=== PATIENT | male | born 1940 | race Caucasian/White ===

== ENCOUNTER 2017-01-06 12:02 | Emergency (ER) | payer OTHER ==
[~2017-01-06] VITALS: Ht 180.3 cm; Wt 108.8 kg
[~2017-01-06 12:02] MED LIST: FINA5TAB4 PO; FLM4 PO; LOSA1TAB PO; METO50TA16 PO; MULT-506 PO; OMEP20CA9 PO; OXYC-57 PO; SIMV40TA2 PO
[2017-01-06] MEDS ORDERED: SODIUM CHLORIDE 0.9% 500ML 500 ML IV STA (12:08)
[2017-01-06 12:18] VITALS: TEMP 36.8; Ht 180.3 cm; Wt 108.8 kg
[2017-01-06] MEDS ORDERED: TAMS0.4C38 PO (12:25)
[2017-01-06] MEDS ORDERED: TRAM-10 PO (12:25)
--- NOTE | 2017-01-06 12:25 | EMERGENCY ROOM VISIT NOTE ---
History Report prepared by Gustaboib[place]hul: Mellisa Doty Under the Supervision of: Dr. Jamar Torres D.O. First contact with patient: 12:02 Stated Complaint: LT SIDED CP History of Present Illness The patient is a 76 year old male who presents to the Emergency Room with complaints of persistent chest pain since 1050 this morning. He was brought to the ED via EMS and is accompanied by his . EMS reports the patient describes the pain as feeling "deep and sharp" in nature. It was mostly located in the left side of his chest. The patient notes the pain started while he was standing, and was not exerting himself. He also became diaphoretic. He took 2 500 mg Aspirin before EMS arrival, which provided good relief. He states he almost feels "back to normal", but is still dizzy. Breathing worsened the discomfort. He denies any recent nausea, vomiting or back pain. The patient admits to a history of hypertension and hyperlipidemia. He has undergone foot surgery, 2 back surgeries and 2 knee replacements. Source of History: patient, EMS Onset: 1050 this morning Position: chest (left) Quality: sharp, other ("deep") Timing: resolved Modifying Factors (Relieving): other (Aspirin) Associated Symptoms: + diaphoresis, No nausea, No vomiting, No back pain Review of Systems See HPI for pertinent positives & negatives. A total of 10 systems reviewed and were otherwise negative. 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 (2) Hyperlipidemia (3) Hypertension Social History Alcohol Use: none Drug Use: none Marital Status: Housing Status: lives with family Occupation Status: retired Current/Historical Medications Scheduled Cefdinir (Omnicef), 300 MG PO Q12H Finasteride (Proscar), 5 MG PO DAILY Losartan Potassium (Cozaar), 25 MG PO QAM Metoprolol Tartrate (Lopressor) (Lopressor), 50 MG PO BID Omeprazole (Prilosec), 20 MG PO DAILY Simvastatin (Zocor), 40 MG PO QPM Tamsulosin Hcl (Flomax), 0.4 MG PO DAILY Scheduled PRN Tramadol (Ultram), 50 MG PO BID PRN for Pain Allergies Coded Allergies: Adhesives (Verified Allergy, Unknown, BANDAIDS-REDNESS, 12/04/13) NO KNOWN DRUG ALLERGIES (Verified Allergy, Unknown, , 12/04/13) Physical Exam Vital Signs Date Time Temp Pulse Resp B/P (MAP) Pulse Ox O2 Delivery O2 Flow Rate FiO2 01/06/17 15:31 63 18 146/97 97 01/06/17 13:15 78 20 180/96 98 Room Air 01/06/17 12:21 66 01/06/17 12:18 36.8 70 18 194/98 98 Room Air Physical Exam GENERAL: Patient is awake, alert, mildly anxious but overall comfortable. EYES: The conjunctivae are clear. The pupils are round and reactive. EARS, NOSE, MOUTH AND THROAT: The nose is without any evidence of any deformity. Mucous membranes are moist tongue is midline NECK: The neck is nontender and supple. RESPIRATORY: Normal respiratory effort is noted there is no evidence of wheezing rhonchi or rales CARDIOVASCULAR: Regular rate and rhythm noted, systolic murmur suggested. GASTROINTESTINAL: The abdomen is soft. Bowel sounds are present in all quadrants. Abdomen is nontender BACK: No midline tenderness or or step-off noted range of motion in flexion extension as well as rotation no signs of muscle spasm noted MUSCULOSKELETAL/EXTREMITIES: There is no evidence of gross deformity full range of motion is noted in the hips and shoulders SKIN: Pedal edema bilaterally. There is no obvious evidence of any rash. There are no petechiae, pallor or cyanosis noted. NEUROLOGIC: Patient is awake alert and oriented x3 Medical Decision & Procedures ER Provider Diagnostic Interpretation: Radiology results as stated below per my review and radiologist interpretation: ABDOMEN AND PELVIS CT WITHOUT CONTRAST CT DOSE: 966.75 mGy.cm HISTORY: Left flank pain. TECHNIQUE: Multiaxial CT images of the abdomen and pelvis were performed without contrast. A dose lowering technique was utilized adhering to the principles of ALARA. COMPARISON STUDY: Abdomen and pelvis CT 02/17/2008. FINDINGS: Mild interstitial thickening at the lung bases which is likely chronic. This has slightly progressed. Posterior decompression fusion at L3-L5. Mild hepatic steatosis. The unenhanced gallbladder, spleen, and adrenal glands are unremarkable. No retroperitoneal lymphadenopathy. Mildly ectatic abdominal aorta measuring up to 2.7 cm. The bladder is unremarkable. The prostate gland remains enlarged. Small fat-containing bilateral inguinal hernias, unchanged. Stable epiploic appendage anterior to the distal descending colon. Suboptimal evaluation for bowel pathology due to the lack of intravenous and oral contrast. However, there is no definite bowel wall thickening or obstruction. Normal appendix. There is 9 mm exophytic hypodense lesion abutting the tail the pancreas on image 138. This was likely present on the prior study and measured 7 mm. 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 This is of doubtful clinical significance given the relative long-term stability. 1.4 cm hypodense lesion within the upper pole the right kidney and a 2 cm hypodense lesion within the lower pole of the right kidney. These are incompletely characterized on this noncontrast study but favor cysts. These have only slightly increased in size in the interval. No renal or ureteral calculi. No hydronephrosis. IMPRESSION: 1. No renal or ureteral calculi. No hydronephrosis. 2. No definite bowel wall thickening or obstruction. 3. Enlarged prostate. 4. Small fat-containing bilateral inguinal hernias, unchanged. 5. Normal appendix. 6. Additional findings as described above. Electronically signed by: Deepak Hassan M.D. 01/06/2017 12:44 PM CHEST ONE VIEW PORTABLE HISTORY: Left-sided chest pain. COMPARISON: Chest 03/02/2013. FINDINGS: Mild bibasilar interstitial thickening which is likely chronic. The upper lung zones are clear. The heart is borderline enlarged. No pleural effusions. No pneumothorax. There is a right shoulder prosthesis. IMPRESSION: Mild bibasilar interstitial thickening which is likely chronic. Otherwise, no acute process within the chest. Electronically signed by: Deepak Hassan M.D. 01/06/2017 12:54 PM Laboratory Results 01/06/17 11:30 Red Blood Count 5.02, Mean Corpuscular Volume 88.4, Mean Corpuscular Hemoglobin 29.3, Mean Corpuscular Hemoglobin Concent 33.1, Mean Platelet Volume 10.8, Neutrophils (%) (Auto) 65.2, Lymphocytes (%) (Auto) 23.9, Monocytes (%) (Auto) 7.7, Eosinophils (%) (Auto) 2.0, Basophils (%) (Auto) 0.6, Neutrophils # (Auto) 4.47, Lymphocytes # (Auto) 1.64, Monocytes # (Auto) 0.53, Eosinophils # (Auto) 0.14, Basophils # (Auto) 0.04 01/06/17 11:30 Test 01/06/17 11:30 01/06/17 12:50 01/06/17 13:15 White Blood Count 6.86 K/uL (4.8-10.8) Red Blood Count 5.02 M/uL (4.7-6.1) Hemoglobin 14.7 g/dL (14.0-18.0) Hematocrit 44.4 % (42-52) Mean Corpuscular Volume 88.4 fL (80-100) Mean Corpuscular Hemoglobin 29.3 pg (25-34) Mean Corpuscular Hemoglobin Concent 33.1 g/dl (32-36) Platelet Count 202 K/uL (130-400) Mean Platelet Volume 10.8 fL (7.4-10.4) Neutrophils (%) (Auto) 65.2 % Lymphocytes (%) (Auto) 23.9 % Monocytes (%) (Auto) 7.7 % Eosinophils (%) (Auto) 2.0 % Basophils (%) (Auto) 0.6 % Neutrophils # (Auto) 4.47 K/uL (1.4-6.5) Lymphocytes # (Auto) 1.64 K/uL (1.2-3.4) Monocytes # (Auto) 0.53 K/uL (0.11-0.59) Eosinophils # (Auto) 0.14 K/uL (0-0.5) Basophils # (Auto) 0.04 K/uL (0-0.2) RDW Standard Deviation 47.9 fL (36.4-46.3) RDW Coefficient of Variation 14.9 % (11.5-14.5) Immature Granulocyte % (Auto) 0.6 % Immature Granulocyte # (Auto) 0.04 K/uL (0.00-0.02) Anion Gap 12.0 mmol/L (3-11) Est Creatinine Clear Calc Drug Dose 61.1 ml/min Estimated GFR () 63.5 Estimated GFR (Non- 54.8 BUN/Creatinine Ratio 11.2 (10-20) Calcium Level 8.6 mg/dl (8.5-10.1) Magnesium Level 2.0 mg/dl (1.8-2.4) Total Bilirubin 0.6 mg/dl (0.2-1) Direct Bilirubin 0.1 mg/dl (0-0.2) Aspartate Amino Transf (AST/SGOT) 24 U/L (15-37) Alanine Aminotransferase (ALT/SGPT) 24 U/L (12-78) Alkaline Phosphatase 127 U/L (45-117) Troponin I < 0.015 ng/ml (0-0.045) Total Protein 7.1 gm/dl (6.4-8.2) Albumin 3.4 gm/dl (3.4-5.0) Lipase 145 U/L (73-393) Prothrombin Time 10.7 SECONDS (9.0-12.0) Prothromb Time International Ratio 1.0 (0.9-1.1) Activated Partial Thromboplast Time 25.1 SECONDS (21.0-31.0) Partial Thromboplastin Ratio 1.0 Urine Color YELLOW Urine Appearance CLEAR (CLEAR) Urine pH 6.5 (4.5-7.5) Urine Specific [place] 1.023 (1.000-1.030) Urine Protein NEG (NEG) Urine Glucose (UA) NEG (NEG) Urine Ketones NEG (NEG) Urine Occult Blood 1+ (NEG) Urine Nitrite NEG (NEG) Urine Bilirubin NEG (NEG) Urine Urobilinogen NEG (NEG) Urine Leukocyte Esterase MODERATE (NEG) Urine WBC (Auto) >30 /hpf (0-5) Urine RBC (Auto) 10-30 /hpf (0-4) Urine Hyaline Casts (Auto) 1-5 /lpf (0-5) Urine Epithelial Cells (Auto) 10-20 /lpf (0-5) Urine Bacteria (Auto) NEG (NEG) Laboratory results per my review. Medications Administered Medications (Trade) Dose Ordered Sig/[place] Route Start Time Stop Time Status Last Admin Dose Admin Sodium Chloride 500 ml @ 999 mls/hr Q31M STAT IV 01/06/17 12:08 01/06/17 12:38 DC 01/06/17 12:48 999 MLS/HR Ceftriaxone Sodium (Rocephin Inj) 1 gm NOW STAT IV 01/06/17 13:52 01/06/17 13:53 DC 01/06/17 14:29 1 GM ECG Indication: chest pain Rate (beats per minute): 68 Rhythm: sinus rhythm Findings: PVC, other (No acute ST segment abnormalities) Change: no significant change (No change from February 18, 2013) ED Course 1202: The patient was evaluated in room B2. A complete history and physical examination were performed. 1208: NSS 500 ml @ 999 mls/hr IV. 1352: Rocephin 1 gm IV. 1355: I reevaluated the patient. He is resting comfortably. I discussed his results and discharge instructions and he and his verbalized complete understanding and agreement. Medical Decision Prior records/ancillary studies reviewed. Triage Nursing notes reviewed. Additional history obtained from EMS. The patient's history was concerning for abdominal pain. Differential diagnosis: Etiologies such as appendicitis, diverticulitis, PUD, biliary pathology, UTI, pancreatitis, obstruction, mesenteric ischemia, aortic pathology, infections, inflammatory bowel disease, renal colic, as well as others were entertained. The patient is a 76-year-old male who presented to the emergency department for an acute episode of left upper quadrant and left flank pain. The patient's pain was very short-lived. It was associated with diaphoresis. He does have a history of renal colic. The patient was treated with IV fluids and IV antibiotic emergency department for presumed urinary tract infection. Urine was sent for culture. I discussed the patient's laboratory and radiographic studies with him. At this time the patient remains pain-free. He has a small amount of blood and urine but also a lot of white blood cells in the urine. I feel his condition could be consistent with a recently passed kidney stone but he also has signs of urinary tract infection. He was encouraged to rest and avoid any strenuous activity. He was also encouraged to continue on medications as prescribed and follow-up with his primary care physician within the next 24-48 hours. He was also encouraged return to the emergency apartment immediately if symptoms change worsen or the need arises. Medication Reconcilliation Current Medication List: was personally reviewed by me Blood Pressure Screening Patient's blood pressure: Elevated blood pressure Blood pressure disposition: Referred to PCP Impression Primary Impression: Left flank pain Additional Impressions: LUQ abdominal pain UTI (urinary tract infection) Scribe Attestation The scribe's documentation has been prepared under my direction and personally reviewed by me in its entirety. I confirm that the note above accurately reflects all work, treatment, procedures, and medical decision making performed by me. Departure Information Dispostion Home / Self-Care Prescriptions Cefdinir (OMNICEF) 300 Mg Cap 300 MG PO Q12H, #14 CAP Prov: Jamar Torres, DO 01/06/17 Patient Instructions Abdominal Pain, [facility], Urinary Tract Infecs Men Additional Instructions Continue all medications as prescribed. Call your family in the morning to schedule follow-up appointment. Drink plenty clear liquids. Return to the emergency department immediately if symptoms change worsen or the need arises. Problem Qualifiers Additional Impressions: UTI (urinary tract infection) Urinary tract infection type: site unspecified Hematuria presence: with hematuria Qualified Codes: N39.0 - Urinary tract infection, site not specified ; R31.9 - Hematuria, unspecified
[2017-01-06 12:34] LABS: BASO % 0.6 %; BASO ABS # 0.04 K/uL (0-0.2); COMPLETE YES; HEMATOCRIT 44.4 % (42-52); IG% 0.6 %; LYMPH % 23.9 %; LYMPH ABS # 1.64 K/uL (1.2-3.4); MEAN CELL VOLUME 88.4 fL (80-100); MEAN CORPUSCULAR HEMOGLOBIN 29.3 pg (25-34); MEAN CORPUSCULAR HGB CONC 33.1 g/dl (32-36); MEAN PLATELET VOLUME 10.8 fL (7.4-10.4); MONO % 7.7 %; NEUT % 65.2 %; PLATELET COUNT 202 K/uL (130-400); RED BLOOD COUNT 5.02 M/uL (4.7-6.1); WHITE BLOOD COUNT 6.86 K/uL (4.8-10.8)
--- NOTE | 2017-01-06 12:45 | DIAGNOSTIC IMAGING REPORT ---
ABDOMEN AND PELVIS CT WITHOUT CONTRAST CT DOSE: 966.75 mGy.cm HISTORY: Left flank pain. TECHNIQUE: Multiaxial CT images of the abdomen and pelvis were performed without contrast. A dose lowering technique was utilized adhering to the principles of ALARA. COMPARISON STUDY: Abdomen and pelvis CT 02/17/2008. FINDINGS: Mild interstitial thickening at the lung bases which is likely chronic. This has slightly progressed. Posterior decompression fusion at L3-L5. Mild hepatic steatosis. The unenhanced gallbladder, spleen, and adrenal glands are unremarkable. No retroperitoneal lymphadenopathy. Mildly ectatic abdominal aorta measuring up to 2.7 cm. The bladder is unremarkable. The prostate gland remains enlarged. Small fat-containing bilateral inguinal hernias, unchanged. Stable epiploic appendage anterior to the distal descending colon. Suboptimal evaluation for bowel pathology due to the lack of intravenous and oral contrast. However, there is no definite bowel wall thickening or obstruction. Normal appendix. There is 9 mm exophytic hypodense lesion abutting the tail the pancreas on image 138. This was likely present on the prior study and measured 7 mm. 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 This is of doubtful clinical significance given the relative long-term stability. 1.4 cm hypodense lesion within the upper pole the right kidney and a 2 cm hypodense lesion within the lower pole of the right kidney. These are incompletely characterized on this noncontrast study but favor cysts. These have only slightly increased in size in the interval. No renal or ureteral calculi. No hydronephrosis. IMPRESSION: 1. No renal or ureteral calculi. No hydronephrosis. 2. No definite bowel wall thickening or obstruction. 3. Enlarged prostate. 4. Small fat-containing bilateral inguinal hernias, unchanged. 5. Normal appendix. 6. Additional findings as described above. Electronically signed by: Deepak Hassan M.D. 01/06/2017 12:44 PM Dictated Date/Time: 01/06/2017 12:36 PM
[2017-01-06 12:52] LABS: ALT/SGPT 24 U/L (12-78); BLOOD UREA NITROGEN 14 mg/dl (7-18); BUN/CREATININE RATIO 11.2 (10-20); CALCIUM 8.6 mg/dl (8.5-10.1); CARBON DIOXIDE 23 mmol/L (21-32); CHLORIDE 106 mmol/L (98-107); CREATININE 1.25 mg/dl (0.60-1.40); GLUCOSE 113 mg/dl (70-99); POTASSIUM 3.9 mmol/L (3.5-5.1); SODIUM 141 mmol/L (136-145)
--- NOTE | 2017-01-06 12:56 | DIAGNOSTIC IMAGING REPORT ---
CHEST ONE VIEW PORTABLE HISTORY: Left-sided chest pain. COMPARISON: Chest 03/02/2013. FINDINGS: Mild bibasilar interstitial thickening which is likely chronic. The upper lung zones are clear. The heart is borderline enlarged. No pleural effusions. No pneumothorax. There is a right shoulder prosthesis. IMPRESSION: Mild bibasilar interstitial thickening which is likely chronic. Otherwise, no acute process within the chest. Electronically signed by: Deepak Hassan M.D. 01/06/2017 12:54 PM Dictated Date/Time: 01/06/2017 12:54 PM
[2017-01-06 12:57] LABS: ALKALINE PHOSPHATASE 127 U/L (45-117); AST/SGOT 24 U/L (15-37)
[2017-01-06 13:16] LABS: PROTHROMBIN TIME (PATIENT) 10.7 SECONDS (9.0-12.0)
[2017-01-06 13:33] LABS: MANUAL MICROSCOPIC REQUIRED? NO; REVIEW REQ? NO; URINE APPEARANCE CLEAR (CLEAR); URINE BILIRUBIN NEG (NEG); URINE COLOR YELLOW; URINE NITRITE NEG (NEG); URINE PH 6.5 (4.5-7.5); URINE SPECIFIC GRAVITY 1.023 (1.000-1.030); UROBILINOGEN NEG (NEG)
[2017-01-06] MEDS ORDERED: CEFTRIAXONE SOD INJ 1 GM ADDVIAL IV STA (13:52)
[2017-01-06] MEDS ORDERED: CEFD300C2 PO (14:57)
[2017-01-06 15:31] VITALS: BP 146/97; PULSE 63; O2SAT 97
== END 2017-01-06 15:33 | disposition home or self-care (01) ==
LOC: EDBD 12:02 → C.EDB 12:03
DX: R10.12 Left upper quadrant pain (principal); N39.0 Urinary tract infection, site not specified; R31.9 Hematuria, unspecified; I10 Essential (primary) hypertension; E78.5 Hyperlipidemia, unspecified; N40.0 Benign prostatic hyperplasia without lower urinary tract symptoms; Z98.890 Other specified postprocedural states; Z79.899 Other long term (current) drug therapy